=== PATIENT | male | born 1935 | race Caucasian/White ===

== ENCOUNTER 2021-02-15 09:03 | Observation (INO) ==
[2021-02-15] MEDS ORDERED: XYLOCAINE 1%/SOD BICARB 20 ML VIAL INFIL ONE (10:06)
[2021-02-15] MEDS ORDERED: DIPHTHERIA/TETANUS/PERTUSSIS 0.5 ML SYR/VIAL IM ONE (10:29)
[2021-02-15] MEDS ORDERED: SODIUM CHLORIDE 0.9% 1000ML 1,000 ML IV ONE (10:30)
--- NOTE | 2021-02-15 11:07 | CT Scan Report ---
HEAD CT NONCONTRAST CT DOSE: HISTORY: Pt c/o syncope, hit head TECHNIQUE: Multiaxial CT images of the head were performed without the use of intravenous contrast. A utomated exposure control was utilized for this study. A dose lowering technique was utilized adheri ng to the principles of ALARA. Comparison: None. Findings: The paranasal sinuses and mastoid air cells are clear. The calvarium and skull base are int act. There is no mass, hematoma, midline shift, acute infarct. White matter hypodensity is nonspecifi c but suggestive of microvascular ischemic change. The ventricles and sulci demonstrate mild age-rela christiano involutional changes. Mild left frontal scalp swelling with associated laceration. There is a 5 m m calcification within the right frontal lobe on image 17. This is of doubtful clinical significance and could represent a small calcified meningioma. Impression: No acute intracranial abnormality. Left frontal scalp laceration. ACT 112: Negative or not required by law. Electronically signed by: Rashad Chavez M.D. 02/15/2021 11:05 AM
[2021-02-15 11:09] LABS: Basophils # (auto) 0.01 K/uL (0-0.2); Basophils % (auto) 0.1 %; Eosinophils # (auto) 0.05 K/uL (0-0.5); Eosinophils % (auto) 0.4 %; Hematocrit (blood only) 39.4 % (42-52); Hemoglobin 13.7 g/dL (14.0-18.0); Immature Granulocytes # (auto) 0.02 K/uL (0.00-0.02); Immature Granulocytes % (auto) 0.2 %; Lymphocytes # (auto) 1.19 K/uL (1.2-3.4); Lymphocytes % (auto) 9.1 %; Mean Corpuscular Hemoglobin 31.6 pg (25-34); Mean Corpuscular Hgb Conc 34.8 g/dL (32-36); Mean Corpuscular Volume 90.8 fL (80-100); Mean Platelet Volume 10.4 fL (7.4-10.4); Monocytes # (auto) 1.07 K/uL (0.11-0.59); Monocytes % (auto) 8.2 %; Neutrophils # (auto) 10.76 K/uL (1.4-6.5); Platelet Count 196 K/uL (130-400); RDW Coefficient of Variation 12.2 % (11.5-14.5); Red Blood Count 4.34 M/uL (4.7-6.1)
--- NOTE | 2021-02-15 11:10 | CT Scan Report ---
CERVICAL SPINE CT CT DOSE: 925.55 mGy.cm HISTORY: Pt c/o fall, hit head TECHNIQUE: Multiaxial CT images of the cervical spine were performed and reformatted in the sagittal and coronal plane without the use of contrast. A dose lowering technique was utilized adhering to th e principles of ALARA. COMPARISON: None. FINDINGS: No fractures. No subluxation. Prevertebral soft tissues and the C1-C2 interval are intact. No pneumothorax. Severe disc space narrowing at C5-C6. IMPRESSION: No fractures within the cervical spine. ACT 112: Negative or not required by law. Electronically signed by: Rashad Chavez M.D. 02/15/2021 11:09 AM
--- NOTE | 2021-02-15 11:31 | XRay Report ---
XR chest 1V portable HISTORY: 85 years-old Male weakness acute chest trauma status post fall. Acute weakness COMPARISON: None TECHNIQUE: Portable AP view of the chest FINDINGS: Mild asymmetric left hilar prominence is likely secondary to pulmonary vasculature. Cardiac silhouett e is upper limits of normal in size. Mild interstitial coarsening of the lung bases likely on a chron ic basis. No pneumothorax, pleural effusion, airspace consolidation or overt pulmonary edema. Degener ative changes of the shoulders and spine. IMPRESSION: No acute process. ACT 112: Negative or not required by law. The above report was generated using voice recognition software. It may contain grammatical, syntax o r spelling errors. Electronically signed by: Benito Sebastian M.D. 02/15/2021 11:30 AM
[2021-02-15 11:35] LABS: Albumin Level 3.4 gm/dl (3.4-5.0); BUN Creatinine Ratio 17.5 (10-20); Calcium 8.9 mg/dl (8.5-10.1); Est GFR (African American) 90.4; Potassium 3.9 mmol/L (3.5-5.1)
[2021-02-15 11:46] LABS: Albumin Globulin Ratio 1.3 (0.9-2); Creatine Kinase MB 1.9 ng/ml (0.5-3.6); Globulin 2.7 gm/dl (2.5-4.0); Thyroid Stimulating Hormone 0.81 uIu/ml (0.300-4.500); Total Protein 6.1 gm/dl (6.4-8.2); Troponin I 0.034 ng/ml (0-0.045)
--- NOTE | 2021-02-15 13:01 | History & Physical Report ---
Date of Service February 15, 2021 Assessment & Plan (1) Fall: (2) Pre-syncope: 85 yr old M w/ hx of prostate ca s/p surgery with residual incontinence who presents to ED after sustaining a fall and possible pre syncope with significant L scalp laceration. Pt never experienced similar sx in past. Pt was going to bathroom, stood up to wash face/brush teeth and fell to L side, concern for pre syncope. Denies maria dolores loss of consciousness. In ED EKG with PAC but otherwise unremarkable. Trop detectable at 0.034, CKMB elevated 4.3. No other acute abnormality - will admit for further observation. Admit to med tele under observation obtain echocardiogram, carotid duplex orthostatic VS, received 1 L of IVF in ED, will administer more if orthostatic positive cycle trops, repeat ecg consult PT/OT cbc, bmp, mag, a1c, lipid panel in a.m. Leukocytosis no s/sx of infection may be reactive UA ordered, repeat in a.m. Hyperglycemia bsg 139 in ED obtain A1C in a.m. (3) Laceration of scalp: wound closed consult wound care for daily management tdap received in ED (4) Incontinence of urine: continue oxybutnin (5) DVT prophylaxis: SCD/TEDS no chemical prophylaxis for now 2/2 to fall/scalp laceration reassess need daily Dispo: M9 [employer] tele PCP: Jossy FULL CODE Pt was seen and examined in collaboration with Dr. Mack, please see addendum History of Present Illness Primary Care Provider: NO PCP This is a 85 year old male who has PMH as listed below who presents to ED after sustaining fall in bathroom prior to arrival hitting his head. He woke up to go to the bathroom and he decided to wash his face and brush his teeth, but he fell and hit his head on the left side. He had a lot of bleeding and was unable to get it to stop. Prior to falling he denies any pre syncopal symptoms like lightheaded, dizziness, diaphoresis, chest pain or SOB. He has never experienced syncopal episode in past. He hit his head and sustained a significant forehead laceration. He does have slight headache along the area of laceration but denies any visual changes. Prior to today episode he denies any f/c/s, dizziness, lightheaded, chest pain, sob, cough, uri sx, n/v/d, abdominal pain, change in bowel or urinary habits. He does have hx of prostate surgery for which he takes oxybutnin for incontinence. He also takes aspirin for prophylaxis of blood clot. He states he eats a low-fat and healthy diet which he attributes to good health. In ED patient remained hemodynamically stable. Lab work significant for mild leukocytosis, glucose 139, CK-MB 4.3, troponin detectable at 0.034. Head CT revealed left frontal scalp laceration and microvascular ischemic change but otherwise no acute abnormality. Chest x-ray and cervical spine CT without acute abnormality. He received 1 L of IV fluid as well as Tdap vaccination. History obtained with family member at bedside and assistance of scale model maker. Allergies Allergy/AdvReac Type Severity Reaction Status Date / Time No Known Allergies Allergy Unverified 02/15/21 10:08 Home Medications Medication Instructions Recorded Confirmed Type aspirin [Aspir-81] 81 mg PO DAILY 02/15/21 02/15/21 History oxybutynin chloride 5 mg PO BID 02/15/21 02/15/21 History Past Med/Surg History Medical History (Updated 02/15/21 @ 13:12 by Cindy Gonzáles PA-C) History of prostate cancer History of skin cancer Surgical History (Updated 02/15/21 @ 12:56 by Cindy Gonázles PA-C) History of prostate surgery Family History (Updated 02/15/21 @ 12:59 by Cindy Gonzáles PA-C) Denies family history of Heart disease Social History (Updated 02/15/21 @ 12:59 by Cindy Gonzáles PA-C) Smoking Status: Never smoker Hx Alcohol Use: No Hx Substance Use: No Preferred Language: Cambodian Communication Tools: IPad and Other Current Living Situation: Alone Current Living Situation Comment: never alone, 3 daughters assist him Feels Safe at Home: Yes Review of Systems Review of Systems: All systems reviewed & are unremarkable except as noted in HPI & below assisted with intepreter Physical Exam Physical Exam: Constitutional: Elderly, Cambodian, male, WD/WN, vitals as above, NAD, sitting up in bed, pleasant, conversing easily Head: Normocephalic, laceration to left temporal scalp region, wound sutured and closed with good approximation of edges Eyes: PERRL, conjunctivae normal, anicteric sclerae ENMT: external ear and nose normal, oropharynx normal Neck: trachea midline, no thyromegaly normal visual inspection Respiratory: normal respiratory effort, lungs clear to auscultation, no wheeze, rales, rhonchi. Normal insp/exp effort, no accessory muscle use Cardiovascular: RRR, no murmur, no edema Vessels: no JVD or carotid bruit Chest: normal inspection of chest Abdomen: normal bowel sounds, soft, nontender, no hepatosplenomegaly Musculoskeletal: no cyanosis or clubbing, extremities motor strength 5/5 Skin: no rashes, warm and dry normal turgor Neurologic: PERRL, EOMI, accommodation nl, no face palsy, no dysarthria CN's II-XI intact bilaterally and moves all extremities Psychiatric: A+Ox3, euthymic affect Lymphatic: no cervical or axillary lymphadenopathy : deferred Results & Data Results & Data ([facility]) Vital Signs (Past 12 Hours) Vital Signs Pulse Resp BP Pulse Ox 02/15/21 09:14 88 18 140/101 H [address]: Findings: The paranasal sinuses and mastoid air cells are clear. The calvarium and skull base are intact. There is no mass, hematoma, midline shift, acute infarct. White matter hypodensity is nonspecific but suggestive of microvascular ischemic change. The ventricles and sulci demonstrate mild age-related involutional changes. Mild left frontal scalp swelling with associated laceration. There is a 5 mm calcification within the right frontal lobe on image 17. This is of doubtful clinical significance and could represent a small calcified meningioma. Impression: No acute intracranial abnormality. Left frontal scalp laceration. CXR: IMPRESSION: No acute process. C Spine CT: FINDINGS: No fractures. No subluxation. Prevertebral soft tissues and the C1-C2 interval are intact. No pneumothorax. Severe disc space narrowing at C5-C6. ECG Rate (beats per minute): 68 Rhythm: normal sinus Findings: + PAC COVID-19 Results Results COVID-19 Adm Lab Results: RBC 4.34 M/uL (4.7-6.1) L 02/15/21 WBC 13.10 K/uL (4.8-10.8) H 02/15/21 Hgb 13.7 g/dL (14.0-18.0) L 02/15/21 Hct 39.4 % (42-52) L 02/15/21 Plt Count 196 K/uL (130-400) 02/15/21 Neutrophils (%) (Auto) 82.0 % 02/15/21 Lymphocytes (%) (Auto) 9.1 % 02/15/21 Monocytes # (Auto) 1.07 K/uL (0.11-0.59) H 02/15/21 Eosinophils # (Auto) 0.05 K/uL (0-0.5) 02/15/21 Immature Granulocyte % (Auto) 0.2 % 02/15/21 Neutrophils # (Auto) 10.76 K/uL (1.4-6.5) H 02/15/21 Lymphocytes # (Auto) 1.19 K/uL (1.2-3.4) L 02/15/21 Monocytes # (Auto) 1.07 K/uL (0.11-0.59) H 02/15/21 Eosinophils # (Auto) 0.05 K/uL (0-0.5) 02/15/21 Basophils # (Auto) 0.01 K/uL (0-0.2) 02/15/21 Immature Granulocyte # (Auto) 0.02 K/uL (0.00-0.02) 02/15/21 Na 138 mmol/L (136-145) 02/15/21 K 3.9 mmol/L (3.5-5.1) 02/15/21 Cl 108 mmol/L (98-107) H 02/15/21 CO2 26 mmol/L (21-32) 02/15/21 Anion Gap 4.0 (3-11) 02/15/21 BUN 16 mg/dl (7-18) 02/15/21 Creatinine 0.89 mg/dl (0.6-1.4) 02/15/21 BUN/Creatinine Ratio 17.5 (10-20) 02/15/21 Glucose Level 139 mg/dl (70-99) H 02/15/21 Ca 8.9 mg/dl (8.5-10.1) 02/15/21 Total Bilirubin 1.0 mg/dl (0.2-1) 02/15/21 AST/SGOT 15 U/L (15-37) 02/15/21 ALT/SGPT 19 U/L (12-78) 02/15/21 Alkaline Phosphatase 70 U/L (45-117) 02/15/21 Total Protein 6.1 gm/dl (6.4-8.2) L 02/15/21 Albumin 3.4 gm/dl (3.4-5.0) 02/15/21 Globulin 2.7 gm/dl (2.5-4.0) 02/15/21 Albumin/Globulin Ratio 1.3 (0.9-2) 02/15/21 Total CK 44 U/L (39-308) 02/15/21 Troponin I 0.034 ng/ml (0-0.045) 02/15/21 COVID-19 PCR NEGATIVE (Negative) 02/15/21 Influenza Virus Type A (PCR) Negative (Neg) 02/15/21 Influenza Virus Type B (PCR) Negative (Neg) 02/15/21 Chest X-Ray 02/15/21 Code Status & VTE Plan Code Status Full Code VTE Prophylaxis Plan VTE Prophylaxis will be ordered: Yes Reason for no VTE drug order: Contraindicated Supervising Physician Co-Signing Physician Notes And is an 84-year-old male with history of prostate cancer S/P surgery many years ago, urinary incontinence but otherwise no significant past medical history presents with history of fall sustaining head laceration this morning. Patient fell this morning after visiting bathroom and fell on his left side hitting his head which resulted in bleeding from scalp laceration. He denied any history of dizziness, change in vision, loss of consciousness, nausea, chest pain, shortness of breath. He denied similar episodes in the past as well. No recent change in his medications. Please review HPI for complete details of presentation. Patient takes aspirin but denies any use of any other blood thinners. CT head showed no acute intracranial abnormality. CT neck showed no cervical fractures. On exam patient is thin, elderly, no apparent distress, normocephalic, + left scalp laceration and sutures, EOMI, lungs are clear to auscultation, normal breath sounds, S1-S2, no murmur, abdomen soft nontender, normal bowel sounds, alert, awake, oriented, grossly no focal neural deficits, no pedal edema. Patient is admitted for management of presyncope, fall, scalp laceration. Will obtain carotid ultrasound, echocardiogram, check orthostatics, trend cardiac enzymes and repeat EKG in the morning. Request PT OT evaluation. Mild leukocytosis likely reactive. I personally reviewed the record. Patient is interviewed and examined at bedside. Patient's care is coordinated with Cindy Gonzáles PA-C. Please refer to the documentation above for details of patient's presentation and for discussion of other issues.
[2021-02-15 13:17] LABS: Influenza A virus by PCR Negative (Neg); Influenza B virus by PCR Negative (Neg); RSV by PCR Negative (Neg); SARS CoV2 RNA(COVID-19) InHosp NEGATIVE (Negative)
--- NOTE | 2021-02-15 14:32 | Ultrasound Report ---
BILATERAL CAROTID DOPPLER STUDY HISTORY: syncope COMPARISON: None. TECHNIQUE: Real-time, grayscale, and color Doppler sonography of the carotid arteries was performed. Imaging reviewed in the transverse and longitudinal planes. All measurements were calculated based on NASCET criteria. FINDINGS: Antegrade flow is seen in the bilateral vertebral arteries. The brachial pressures are hemodynamically similar. Mild calcified plaque within the bilateral carotid bifurcations. The peak systolic velocity within the right ICA is 74 cm/s. The right systolic ratio is 1.3. The peak systolic velocity within the left ICA is 65 cm/s. The left systolic ratio is 1.0. IMPRESSION: No hemodynamically significant stenosis seen within the carotid arteries. ACT 112: Negative or not required by law. Electronically signed by: Rashad Chavez M.D. 02/15/2021 2:30 PM
[2021-02-15] MEDS ORDERED: MAGNESIUM HYDROXIDE SUSP 30 ML UDC PO PRN (14:38)
[2021-02-15] MEDS ORDERED: ACETAMINOPHEN 325 MG TAB PO PRN (14:38)
[2021-02-15] MEDS ORDERED: ONDANSETRON INJ 2 MG/ML 2 ML VIAL IV PRN (14:38)
[2021-02-15] MEDS ORDERED: ALUMINUM/MAGNESIUM SUSP 30 ML UDC PO PRN (14:38)
[2021-02-15] MEDS ORDERED: POLYETHYLENE (MIRALAX) 17 GM PACK PO PRN (14:38)
--- NOTE | 2021-02-15 15:07 | Emergency Department Note ---
Impression & Plan Fall, Laceration of scalp ED Provider Note NAME: SRAVAN BERRY AGE: 85 SEX: M : 1935 ARRIVES VIA: Ambulance INFORMANT: Patient, daughter, wellness director ED PROVIDER(S): Abdulaziz Edmonds MD CHIEF COMPLAINT: Syncope, laceration HPI: This is an 85-year-old male who presents emergency department after passing out. The patient reports he urinated this morning and was brushing his teeth when he passed out without any warning. His daughter found him on the floor of the bathroom. He had a large laceration to his scalp which was bleeding profusely. EMS was summoned who. He reports never having passed out like this before. Put a bandage on the patient's head. The patient denies any pain. He has not taken anything prior to arrival including his morning medications. ROS: See above HPI for pertinent positives & negatives. A total of 10 systems reviewed and were otherwise negative. PAST MEDICAL HISTORY: See Below PAST SURGICAL HISTORY: See Below FAMILY HISTORY: See Below SOCIAL HISTORY: See Below HOME MEDICATIONS: See Below ALLERGIES: See Below VITALS: See Below PHYSICAL EXAMINATION: VITAL SIGNS - Vital signs and nursing notes were reviewed. GENERAL - 85-year-old male appearing stated age who is in no acute distress. Communicates well with provider and answers questions appropriately. SKIN - 4 cm laceration to left side of forehead HEAD - as above EYES - PERRL with EOMI bilaterally. Sclera anicteric. Palpebral conjunctiva pink and moist with no injection noted. EARS - No deformities of external structures noted on gross examination bilaterally. NOSE - Midline and without cyanosis. No epistaxis or purulent drainage noted. Septum midline without deviation or septal hematoma noted. MOUTH/OROPHARYNX - Without perioral cyanosis. Buccal mucosa pink and moist and without leukoplakia. Tongue midline with equal elevation of palate bilaterally. No tonsillar hypertrophy, erythema, or exudates noted. dentition noted. NECK - Neck with FROM. Supple to palpation. lymphadenopathy noted. No nuchal rigidity. LUNGS - Chest wall symmetric without accessory muscle use, intercostals retractions, or central cyanosis. Normal vesicular breath sounds CTA B/L. No wheezes, rales, or rhonchi appreciated. CARDIAC - RRR with S1/S2. No murmur, rubs, or gallops appreciated. ABDOMEN - Abdominal contour without pulsations or visible masses. BS normoactive all four quadrants. No tenderness, palpable masses, hepatosplenomegaly, or ascites noted. EXTREMITIES - No clubbing or peripheral cyanosis. No pretibial edema present. +3/5 radial, posterior tibial, and dorsalis pedis pulses palpated throughout. +5/5 strength noted in UE/LE bilaterally. NEUROLOGIC - Cranial nerves II through XII grossly intact. Sensory intact to light touch throughout. Patellar reflexes +2/4. PSYCH - A&Ox3 and cooperates fully with examiner. Pt is very pleasant and interacts well with examiner. MEDICAL DECISION MAKING: Patient was seen and evaluated as above in room . Review was performed of nursing notes and vital signs. I did review pertinent previous visits and patient history. After obtaining a thorough history and physical examination the above work up was performed. This is an 85-year-old male requesting excel expert services. The patient was given a tetanus shot here in the emergency department. His laceration was repaired as below. I will note that the patient has a slightly elevated troponin. With his syncopal episode I do feel he should be admitted to the hospital he was given a normal saline bolus here in the emergency department. Both patient and daughter are in agreement with the treatment plan. While in the department, I personally reevaluated the patient several times and each time the patient was found to be resting comfortably. The patient was educated upon management, educated upon todays findings/results, educated upon importance of follow up from today's visit, educated upon symptoms in which to return, had questions answered prior to discharge, verbalized understanding, and was discharged home in good condition. An order was placed for continuous cardiac monitoring. The monitor shows a rate of 86 with Normal SInus rhythm. The patient was evaluated during a period of high volume and high acuity during the global COVID-19 pandemic, and that diagnosis was suspected/considered upon their initial presentation. Their evaluation, treatment and testing was consistent with current guidelines for patients who present with complaints or symptoms that may be related to COVID-19. Patient was seen while provider was wearing PPE. Triage Nursing notes reviewed. Prior medical records reviewed Vital Signs: reviewed and remarkable for no significant abnormalities Differential diagnosis: Infection, dehydration, metabolic abnormality, hypo/hyperglycemia, electrolyte disturbance, anemia, hypoxia, cardiac sources, intracerebral event, toxicologic, neurologic, as well as other pathologies. ER treatment provided: See below Diagnostics interpreted by me: ECG: EKG shows a sinus rhythm with premature supraventricular complexes no ST elevation or depression QTC is 442 ventricular rate of 68, there is no previous EKG to compare to. Laboratory studies: As stated above and show below. Imaging studies: See below Consultation(s): hospitalist Procedures: Location: left forehead Total length: 4 cm Complexity: simple linear Verbal consent was obtained after the risks and benefits were explained, including but not limited to bleeding, scarring, infection, pain, and bone/joint/nerve damage. At this time, the risks of the procedure are less than the risks of NOT performing the procedure. A time out was taken and the correct patient and site identified. The skin was prepped with betadine. The target area was anesthetized with 4 ml of 1% lidocaine without epinephrine. Copious irrigation was performed using NSS. A sterile field set. The wound was explored for foreign bodies and none found. Examination revealed no injury to deep structures such as tendons, bone, or significant blood vessels. Debridement was not performed. The wound edges were approximated using 1, 5-0 simple running nylon suture. Hemostasis and excellent approximation was achieved. Antibacterial ointment and a sterile dressing applied. Detailed wound care instructions and signs and symptoms of infection reviewed with the patient and daughter. No complications and the patient tolerated the procedure well. Past Med/Surg History Medical History (Updated 02/15/21 @ 17:51 by Abdulaziz Edmonds MD) History of prostate cancer History of skin cancer Surgical History (Updated 02/15/21 @ 12:56 by Cindy Gonzáles PA-C) History of prostate surgery Family History (Updated 02/15/21 @ 12:59 by Cindy Gonzáles PA-C) Denies family history of Heart disease Social History (Updated 02/15/21 @ 12:59 by Cindy Gonzáles PA-C) Smoking Status: Never smoker Hx Alcohol Use: No Hx Substance Use: No Preferred Language: Irish Communication Ability: Effective Communication Tools: IPad and Other Log Hauler Required: Yes Beliefs That Will Affect Care: None Current Living Situation: Alone Current Living Situation Comment: never alone, 3 daughters assist him Other Information That Helps Us Care for You: No Feels Safe at Home: Yes Safety Concerns: Feels Safe At This Time Assistive Devices: None Allergies Allergies Allergy/AdvReac Type Severity Reaction Status Date / Time No Known Allergies Allergy Unverified 02/15/21 10:08 Home Meds Home Medications Medication Instructions Recorded Confirmed aspirin [Aspir-81] 81 mg PO DAILY 02/15/21 02/15/21 oxybutynin chloride 5 mg PO BID 02/15/21 02/15/21 Results & Data (ED) Vital Signs Vital Signs - 24 hr 02/15/21 09:14 Pulse Rate 88 Respiratory Rate 18 Blood Pressure 140/101 H Blood Pressure Mean 114 Pulse Oximetry 94 Sepsis Recent Fever Within 48 Hours No Sepsis New/Unexplained Change in Mental Status No Sepsis Action Taken by Nursing No Action Required Home Medications Current Medication List: was personally reviewed by me Laboratory Data Attestation: I reviewed the patient's lab results. Result diagrams: 02/15/21 10:51 02/15/21 10:51 Lab Results 02/15/21 02/15/21 02/15/21 Range/Units 10:51 10:51 12:31 WBC 13.10 H (4.8-10.8) K/uL RBC 4.34 L (4.7-6.1) M/uL Hgb 13.7 L (14.0-18.0) g/dL Hct 39.4 L (42-52) % MCV 90.8 (80-100) fL MCH 31.6 (25-34) pg MCHC 34.8 (32-36) g/dL RDW Std Deviation 41.0 (36.4-46.3) fL RDW Coeff of Juan 12.2 (11.5-14.5) % Plt Count 196 (130-400) K/uL MPV 10.4 (7.4-10.4) fL Immature Gran % (Auto) 0.2 % Neut % (Auto) 82.0 % Lymph % (Auto) 9.1 % [place] % (Auto) 8.2 % Eos % (Auto) 0.4 % Baso % (Auto) 0.1 % Neut # (Auto) 10.76 H (1.4-6.5) K/uL Lymph # (Auto) 1.19 L (1.2-3.4) K/uL [place] # (Auto) 1.07 H (0.11-0.59) K/uL Eos # (Auto) 0.05 (0-0.5) K/uL Baso # (Auto) 0.01 (0-0.2) K/uL Immature Gran # (Auto) 0.02 (0.00-0.02) K/uL Sodium 138 (136-145) mmol/L Potassium 3.9 (3.5-5.1) mmol/L Chloride 108 H (98-107) mmol/L Carbon Dioxide 26 (21-32) mmol/L Anion Gap 4.0 (3-11) BUN 16 (7-18) mg/dl Creatinine 0.89 (0.6-1.4) mg/dl Est Cr Clr Drug Dosing 50.0 ml/min Est GFR ( Amer) 90.4 Est GFR (Non-Af Amer) 78.0 BUN/Creatinine Ratio 17.5 (10-20) Glucose 139 H (70-99) mg/dl Calcium 8.9 (8.5-10.1) mg/dl Total Bilirubin 1.0 (0.2-1) mg/dl AST 15 (15-37) U/L ALT 19 (12-78) U/L Alkaline Phosphatase 70 (45-117) U/L Total Creatine Kinase 44 (39-308) U/L CK-MB (CK-2) 1.9 (0.5-3.6) ng/ml CK/CKMB % Calc 4.3 H (0-3.0) Troponin I 0.034 (0-0.045) ng/ml Total Protein 6.1 L (6.4-8.2) gm/dl Albumin 3.4 (3.4-5.0) gm/dl Globulin 2.7 (2.5-4.0) gm/dl Albumin/Globulin Ratio 1.3 (0.9-2) TSH 0.810 (0.300-4.500) uIu/ml COVID-19 Eval Order CovFluRsv at [facility] SARS-CoV-2 (PCR) (Negative) Influenza Type A (PCR) (Neg) Influenza Type B (PCR) (Neg) RSV (RT-PCR) (Neg) 02/15/21 Range/Units 12:31 WBC (4.8-10.8) K/uL RBC (4.7-6.1) M/uL Hgb (14.0-18.0) g/dL Hct (42-52) % MCV (80-100) fL MCH (25-34) pg MCHC (32-36) g/dL RDW Std Deviation (36.4-46.3) fL RDW Coeff of Juan (11.5-14.5) % Plt Count (130-400) K/uL MPV (7.4-10.4) fL Immature Gran % (Auto) % Neut % (Auto) % Lymph % (Auto) % [place] % (Auto) % Eos % (Auto) % Baso % (Auto) % Neut # (Auto) (1.4-6.5) K/uL Lymph # (Auto) (1.2-3.4) K/uL [place] # (Auto) (0.11-0.59) K/uL Eos # (Auto) (0-0.5) K/uL Baso # (Auto) (0-0.2) K/uL Immature Gran # (Auto) (0.00-0.02) K/uL Sodium (136-145) mmol/L Potassium (3.5-5.1) mmol/L Chloride (98-107) mmol/L Carbon Dioxide (21-32) mmol/L Anion Gap (3-11) BUN (7-18) mg/dl Creatinine (0.6-1.4) mg/dl Est Cr Clr Drug Dosing ml/min Est GFR ( Amer) Est GFR (Non-Af Amer) BUN/Creatinine Ratio (10-20) Glucose (70-99) mg/dl Calcium (8.5-10.1) mg/dl Total Bilirubin (0.2-1) mg/dl AST (15-37) U/L ALT (12-78) U/L Alkaline Phosphatase (45-117) U/L Total Creatine Kinase (39-308) U/L CK-MB (CK-2) (0.5-3.6) ng/ml CK/CKMB % Calc (0-3.0) Troponin I (0-0.045) ng/ml Total Protein (6.4-8.2) gm/dl Albumin (3.4-5.0) gm/dl Globulin (2.5-4.0) gm/dl Albumin/Globulin Ratio (0.9-2) TSH (0.300-4.500) uIu/ml COVID-19 Eval Order SARS-CoV-2 (PCR) NEGATIVE (Negative) Influenza Type A (PCR) Negative (Neg) Influenza Type B (PCR) Negative (Neg) RSV (RT-PCR) Negative (Neg) Administered Medications Discontinued Medications Diphtheria/Pertussis/Tetanus Vacc (Diphtheria/Tetanus/Pertussis 0.5 Ml Syr/Vial) 0.5 ml IM .ONCE ONE Stop: 02/15/21 10:30 Last Admin: 02/15/21 11:21 Dose: 0.5 ml Documented by: [id number] Sodium Chloride (Nss 1000ml) 1,000 mls @ 999 mls/hr IV .Q1H1M ONE Stop: 02/15/21 11:30 Last Infusion: 02/15/21 12:21 Dose: 0 mls/hr Documented by: [id number] Admin: 02/15/21 11:20 Dose: 999 mls/hr Documented by: [id number] Lidocaine HCl (Xylocaine 1%/Sod Bicarb 20 Ml Vial) Confirm Administered Dose 20 ml INFIL .STK-MED ONE Stop: 02/15/21 10:07 Last Admin: 02/15/21 10:15 Dose: 20 ml Documented by: [id number] Imaging Data Attestation: I personally reviewed and interpreted this imaging study as follows: Radiologist's Impression: Cervical Spine CT 02/15/21 10:[address] DOSE: 925.55 mGy.cm HISTORY: Pt c/o fall, hit head TECHNIQUE: Multiaxial CT images of the cervical spine were performed and refor matted in the sagittal and coronal plane without the use of contrast. A dose lowering technique was utilized adhering to the principles of ALARA. COMPARISON: None. FINDINGS: No fractures. No subluxation. Prevertebral soft tissues and the C1-C2 interval are intact. No pneumothorax. Severe disc space narrowing at C5-C6. IMPRESSION: No fractures within the cervical spine. ACT 112: Negative or not required by law. Electronically signed by: Rashad Chavez M.D. 02/15/2021 11:09 AM Chest X-Ray 02/15/21 10:29 XR chest 1V portable HISTORY: 85 years-old Male weakness acute chest trauma status post fall. Acute weakness COMPARISON: None TECHNIQUE: Portable AP view of the chest FINDINGS: Mild asymmetric left hilar prominence is likely secondary to pulmonary vasculature. Cardiac silhouette is upper limits of normal in size. Mild interstitial coarsening of the lung bases likely on a chronic basis. No pneumothorax, pleural effusion, airspace consolidation or overt pulmonary edema. Degenerative changes of the shoulders and spine. IMPRESSION: No acute process. ACT 112: Negative or not required by law. The above report was generated using voice recognition software. It may contain grammatical, syntax or spelling errors. Electronically signed by: Benito Sebastian M.D. 02/15/2021 11:[address] 02/15/21 10:[address] DOSE: HISTORY: Pt c/o syncope, hit head TECHNIQUE: Multiaxial CT images of the head were performed without the use of intravenous contrast. Automated exposure control was utilized for this study. A dose lowering technique was utilized adhering to the principles of ALARA. Comparison: None. Findings: The paranasal sinuses and mastoid air cells are clear. The calvarium and skull base are intact. There is no mass, hematoma, midline shift, acute infa rct. White matter hypodensity is nonspecific but suggestive of microvascular ischemic change. The ventricles and sulci demonstrate mild age-related involutional changes. Mild left frontal scalp swelling with associated laceration. There is a 5 mm calcification within the right frontal lobe on image 17. This is of doubtful clinical significance and could represent a small calcified meningioma. Impression: No acute intracranial abnormality. Left frontal scalp laceration. ACT 112: Negative or not required by law. Electronically signed by: Rashad Chavez M.D. 02/15/2021 11:05 AM Discharge Plan Visit Data Stated Complaint: HEAD LAC, FALL ED Provider: Abdulaziz Edmonds Discharge Problem: Fall, Laceration of scalp Patient Disposition: Admitted As Inpatient Discharge Instructions Interventions: ED Discharge Assessment Last Done: 02/15/21 14:10 Discharge Problem: Fall Qualifiers: Encounter type: initial encounter Qualified Code(s): W19.XXXA - Unspecified fall, initial encounter Laceration of scalp Qualifiers: Encounter type: initial encounter Qualified Code(s): S01.01XA - Laceration without foreign body of scalp, initial encounter
--- NOTE | 2021-02-15 17:08 | Electrocardiogram Report ---
Test Reason : Blood Pressure : / mmHG Vent. Rate : 068 BPM Atrial Rate : 068 BPM P-R Int : 154 ms QRS Dur : 076 ms QT Int : 416 ms P-R-T Axes : 052 021 038 degrees QTc Int : 442 ms Poor data quality, interpretation may be adversely affected Sinus rhythm with Premature supraventricular complexes Otherwise normal ECG No previous ECGs available Confirmed by Dago Corbett ([id number]) on 02/15/2021 5:07:39 PM Referred By: REFERRED SELF Confirmed By:Gal Corbett
[2021-02-15] MEDS: OXYBUTYNIN CHLORIDE 5 MG TAB PO SCH (20:24)
[2021-02-16 07:33] LABS: Basophils # (auto) 0.01 K/uL (0-0.2); Basophils % (auto) 0.1 %; Eosinophils # (auto) 0.04 K/uL (0-0.5); Eosinophils % (auto) 0.6 %; Hematocrit (blood only) 32.5 % (42-52); Hemoglobin 11.6 g/dL (14.0-18.0); Immature Granulocytes # (auto) 0.01 K/uL (0.00-0.02); Immature Granulocytes % (auto) 0.1 %; Lymphocytes % (auto) 29.6 %; Mean Corpuscular Hemoglobin 32.1 pg (25-34); Mean Corpuscular Hgb Conc 35.7 g/dL (32-36); Mean Platelet Volume 10.8 fL (7.4-10.4); Monocytes # (auto) 0.83 K/uL (0.11-0.59); Monocytes % (auto) 12.3 %; Neutrophils # (auto) 3.87 K/uL (1.4-6.5); Neutrophils % (auto) 57.3 %; Platelet Count 180 K/uL (130-400); RDW Coefficient of Variation 12.4 % (11.5-14.5); Red Blood Count 3.61 M/uL (4.7-6.1); White Blood Count 6.76 K/uL (4.8-10.8)
[2021-02-16 07:53] LABS: Estimated Average Glucose 117 mg/dl; Hemoglobin A1C 5.7 % (4.5-5.6)
[2021-02-16 08:03] LABS: BUN Creatinine Ratio 23.8 (10-20); Calcium 7.7 mg/dl (8.5-10.1); Creatinine Clr Calc Pharmacy 53.1 ml/min; Est GFR (African American) 94.4; Est GFR (Non-African American) 81.5; Magnesium 2.1 mg/dl (1.8-2.4); Potassium 3.9 mmol/L (3.5-5.1)
[2021-02-16] MEDS: ASPIRIN 81 MG ECTAB PO SCH ×2 (09:43→09:45)
[2021-02-16] MEDS: OXYBUTYNIN CHLORIDE 5 MG TAB PO SCH (09:43)
--- NOTE | 2021-02-16 10:52 | Hospitalist Progress Note ---
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 Pt never experienced similar sx in past. Pt was going to bathroom, stood up to wash face/brush teeth and fell to L side, concern for pre syncope. Denies maria dolores loss of consciousness. In ED EKG with PAC but otherwise unremarkable. Trop detectable at 0.034, CKMB elevated 4.3. No other acute abnormality - admitted for further observation. med tele under observation - sinus w/ PACs overnight Echocardiogram -left ventricle is normal in size. LV systolic function is normal. EF 65 to 70%. LV wall motion is normal. The right ventricular systolic function is normal. LA size is normal. RA size is normal. Mild to moderate aortic regurg. There is mild tricuspid regurg. Carotid duplex - No hemodynamically significant stenosis seen within the carotid arteries. Orthostatic VS obtained after 1L of IV fluids given, patient not orthostatic cycle trops- detectable but no sign. elevation, repeated ecg consult PT/OT - home PT cbc, bmp Leukocytosis no s/sx of infection may be reactive Now resolved UA - negative Hyperglycemia bsg 139 in ED Current A1C 5.7% LDL 67 (3) Laceration of scalp: wound closed consult wound care for daily management - recommend to keep the area clean can was w/ soap and water 24-48 hrs after, poss. abx ointment as needed tdap received in ED (4) Incontinence of urine: continue oxybutnin (5) DVT prophylaxis: SCD/TEDS no chemical prophylaxis for now 2/2 to fall/scalp laceration reassess need daily Dispo: med tele PCP: Dr. Fenton FULL CODE Admission and Anticipated Discharge Date Admission Date: February 15, 2021 Subjective Patient seen in follow-up of fall, possible presyncope, and a scalp laceration Currently patient is sitting up in bed, in no acute distress, family member at the bedside and translating They report that patient stumbled when he was putting on his clothing and report that there was no dizziness or loss of consciousness Currently patient denies any headache, chest pain, shortness of breath, dizziness Overall he feels well, and is inquiring about going home. Review of Systems Review of Systems: All systems reviewed & are unremarkable except as noted in HPI & below Constitutional: no fever and no chills Respiratory: no cough and no dyspnea Cardiovascular: no chest pain and no palpitations Gastrointestinal: no abdominal pain, no nausea and no vomiting Physical Exam Physical Exam: Constitutional: Elderly, Bahamian, male, WD/WN, vitals as above, NAD, sitting up in bed, pleasant, conversing easily Head: Normocephalic, laceration to left temporal scalp region, wound sutured and closed with good approximation of edges Eyes: PERRL, EOMI, conjunctivae normal, anicteric sclerae ENMT: external ear and nose normal, oropharynx normal Neck: trachea midline, no thyromegaly normal visual inspection Respiratory: normal respiratory effort, lungs clear to auscultation, no wheeze, rales, rhonchi. Normal insp/exp effort, no accessory muscle use Cardiovascular: RRR, no murmur, no edema Vessels: no JVD or carotid bruit Chest: normal inspection of chest Abdomen: normal bowel sounds, soft, nontender Musculoskeletal: no cyanosis or clubbing, extremities motor strength 5/5 Skin: no rashes, warm and dry normal turgor Neurologic: PERRL, EOMI, no face palsy, no dysarthria CN's II-XI intact bilaterally and moves all extremities Psychiatric: A+Ox3, euthymic affect Lymphatic: no cervical or axillary lymphadenopathy Results & Data Results & Data ([facility]) Vital Signs (Past 12 Hours) Vital Signs Temp Pulse Pulse Resp BP Pulse Ox 02/16/21 07:37 36.9 C 60 19 113/68 95 02/16/21 07:00 62 02/16/21 03:03 72 02/16/21 02:47 36.6 C 63 18 96/42 L 96 02/15/21 23:14 37.3 C 77 19 109/61 93 Laboratory Results 02/16/21 02/16/21 02/16/21 Range/Units 06:50 06:50 06:50 WBC 6.76 (4.8-10.8) K/uL RBC 3.61 L (4.7-6.1) M/uL Hgb 11.6 L (14.0-18.0) g/dL Hct 32.5 L (42-52) % MCV 90.0 (80-100) fL MCH 32.1 (25-34) pg MCHC 35.7 (32-36) g/dL RDW Std Deviation 41.0 (36.4-46.3) fL RDW Coeff of Juan 12.4 (11.5-14.5) % Plt Count 180 (130-400) K/uL MPV 10.8 H (7.4-10.4) fL Immature Gran % (Auto) 0.1 % Neut % (Auto) 57.3 % Lymph % (Auto) 29.6 % [place] % (Auto) 12.3 % Eos % (Auto) 0.6 % Baso % (Auto) 0.1 % Neut # (Auto) 3.87 (1.4-6.5) K/uL Lymph # (Auto) 2.00 (1.2-3.4) K/uL [place] # (Auto) 0.83 H (0.11-0.59) K/uL Eos # (Auto) 0.04 (0-0.5) K/uL Baso # (Auto) 0.01 (0-0.2) K/uL Immature Gran # (Auto) 0.01 (0.00-0.02) K/uL Sodium 141 (136-145) mmol/L Potassium 3.9 (3.5-5.1) mmol/L Chloride 111 H (98-107) mmol/L Carbon Dioxide 27 (21-32) mmol/L Anion Gap 3.0 (3-11) BUN 19 H (7-18) mg/dl Creatinine 0.80 (0.6-1.4) mg/dl Est Cr Clr Drug Dosing 53.1 ml/min Est GFR ( Amer) 94.4 Est GFR (Non-Af Amer) 81.5 BUN/Creatinine Ratio 23.8 H (10-20) Glucose 91 (70-99) mg/dl Estimat Average Glucose 117 mg/dl Hemoglobin A1c 5.7 H (4.5-5.6) % Calcium 7.7 L (8.5-10.1) mg/dl Magnesium 2.1 (1.8-2.4) mg/dl Total Bilirubin (0.2-1) mg/dl AST (15-37) U/L ALT (12-78) U/L Alkaline Phosphatase (45-117) U/L Total Creatine Kinase (39-308) U/L CK-MB (CK-2) (0.5-3.6) ng/ml CK/CKMB % Calc (0-3.0) Troponin I (0-0.045) ng/ml Total Protein (6.4-8.2) gm/dl Albumin (3.4-5.0) gm/dl Globulin (2.5-4.0) gm/dl Albumin/Globulin Ratio (0.9-2) Triglycerides 72 (0-150) mg/dl Cholesterol 119 (0-200) mg/dl LDL Cholesterol, Calc 67 mg/dl VLDL Cholesterol, Calc 14 mg/dl HDL Cholesterol 38 mg/dl Cholesterol/HDL Ratio 3 TSH (0.300-4.500) uIu/ml COVID-19 Eval Order SARS-CoV-2 (PCR) (Negative) Influenza Type A (PCR) (Neg) Influenza Type B (PCR) (Neg) RSV (RT-PCR) (Neg) 02/15/21 02/15/21 02/15/21 Range/Units 22:27 16:13 12:31 WBC (4.8-10.8) K/uL RBC (4.7-6.1) M/uL Hgb (14.0-18.0) g/dL Hct (42-52) % MCV (80-100) fL MCH (25-34) pg MCHC (32-36) g/dL RDW Std Deviation (36.4-46.3) fL RDW Coeff of Juan (11.5-14.5) % Plt Count (130-400) K/uL MPV (7.4-10.4) fL Immature Gran % (Auto) % Neut % (Auto) % Lymph % (Auto) % [place] % (Auto) % Eos % (Auto) % Baso % (Auto) % Neut # (Auto) (1.4-6.5) K/uL Lymph # (Auto) (1.2-3.4) K/uL [place] # (Auto) (0.11-0.59) K/uL Eos # (Auto) (0-0.5) K/uL Baso # (Auto) (0-0.2) K/uL Immature Gran # (Auto) (0.00-0.02) K/uL Sodium (136-145) mmol/L Potassium (3.5-5.1) mmol/L Chloride (98-107) mmol/L Carbon Dioxide (21-32) mmol/L Anion Gap (3-11) BUN (7-18) mg/dl Creatinine (0.6-1.4) mg/dl Est Cr Clr Drug Dosing ml/min Est GFR ( Amer) Est GFR (Non-Af Amer) BUN/Creatinine Ratio (10-20) Glucose (70-99) mg/dl Estimat Average Glucose mg/dl Hemoglobin A1c (4.5-5.6) % Calcium (8.5-10.1) mg/dl Magnesium (1.8-2.4) mg/dl Total Bilirubin (0.2-1) mg/dl AST (15-37) U/L ALT (12-78) U/L Alkaline Phosphatase (45-117) U/L Total Creatine Kinase (39-308) U/L CK-MB (CK-2) (0.5-3.6) ng/ml CK/CKMB % Calc (0-3.0) Troponin I 0.025 0.036 (0-0.045) ng/ml Total Protein (6.4-8.2) gm/dl Albumin (3.4-5.0) gm/dl Globulin (2.5-4.0) gm/dl Albumin/Globulin Ratio (0.9-2) Triglycerides (0-150) mg/dl Cholesterol (0-200) mg/dl LDL Cholesterol, Calc mg/dl VLDL Cholesterol, Calc mg/dl HDL Cholesterol mg/dl Cholesterol/HDL Ratio TSH (0.300-4.500) uIu/ml COVID-19 Eval Order SARS-CoV-2 (PCR) NEGATIVE (Negative) Influenza Type A (PCR) Negative (Neg) Influenza Type B (PCR) Negative (Neg) RSV (RT-PCR) Negative (Neg) 02/15/21 02/15/21 02/15/21 Range/Units 12:31 10:51 10:51 WBC 13.10 H (4.8-10.8) K/uL RBC 4.34 L (4.7-6.1) M/uL Hgb 13.7 L (14.0-18.0) g/dL Hct 39.4 L (42-52) % MCV 90.8 (80-100) fL MCH 31.6 (25-34) pg MCHC 34.8 (32-36) g/dL RDW Std Deviation 41.0 (36.4-46.3) fL RDW Coeff of Juan 12.2 (11.5-14.5) % Plt Count 196 (130-400) K/uL MPV 10.4 (7.4-10.4) fL Immature Gran % (Auto) 0.2 % Neut % (Auto) 82.0 % Lymph % (Auto) 9.1 % [place] % (Auto) 8.2 % Eos % (Auto) 0.4 % Baso % (Auto) 0.1 % Neut # (Auto) 10.76 H (1.4-6.5) K/uL Lymph # (Auto) 1.19 L (1.2-3.4) K/uL [place] # (Auto) 1.07 H (0.11-0.59) K/uL Eos # (Auto) 0.05 (0-0.5) K/uL Baso # (Auto) 0.01 (0-0.2) K/uL Immature Gran # (Auto) 0.02 (0.00-0.02) K/uL Sodium 138 (136-145) mmol/L Potassium 3.9 (3.5-5.1) mmol/L Chloride 108 H (98-107) mmol/L Carbon Dioxide 26 (21-32) mmol/L Anion Gap 4.0 (3-11) BUN 16 (7-18) mg/dl Creatinine 0.89 (0.6-1.4) mg/dl Est Cr Clr Drug Dosing 50.0 ml/min Est GFR ( Amer) 90.4 Est GFR (Non-Af Amer) 78.0 BUN/Creatinine Ratio 17.5 (10-20) Glucose 139 H (70-99) mg/dl Estimat Average Glucose mg/dl Hemoglobin A1c (4.5-5.6) % Calcium 8.9 (8.5-10.1) mg/dl Magnesium (1.8-2.4) mg/dl Total Bilirubin 1.0 (0.2-1) mg/dl AST 15 (15-37) U/L ALT 19 (12-78) U/L Alkaline Phosphatase 70 (45-117) U/L Total Creatine Kinase 44 (39-308) U/L CK-MB (CK-2) 1.9 (0.5-3.6) ng/ml CK/CKMB % Calc 4.3 H (0-3.0) Troponin I 0.034 (0-0.045) ng/ml Total Protein 6.1 L (6.4-8.2) gm/dl Albumin 3.4 (3.4-5.0) gm/dl Globulin 2.7 (2.5-4.0) gm/dl Albumin/Globulin Ratio 1.3 (0.9-2) Triglycerides (0-150) mg/dl Cholesterol (0-200) mg/dl LDL Cholesterol, Calc mg/dl VLDL Cholesterol, Calc mg/dl HDL Cholesterol mg/dl Cholesterol/HDL Ratio TSH 0.810 (0.300-4.500) uIu/ml COVID-19 Eval Order [facility]FluRsv at [facility] SARS-CoV-2 (PCR) (Negative) Influenza Type A (PCR) (Neg) Influenza Type B (PCR) (Neg) RSV (RT-PCR) (Neg) Medications Administered Current Inpatient Medications Acetaminophen (Acetaminophen 325 Mg Tab) 650 mg PO Q4H PRN PRN Reason: Pain or Fever Stop: 03/17/21 14:37 Al Hydrox/Mg Hydrox/Simethicone (Aluminum/Magnesium Susp 30 Ml Udc) 15 ml PO Q4H PRN PRN Reason: Dyspepsia Stop: 03/17/21 14:37 Aspirin (Aspirin 81 Mg Ectab) 81 mg PO DAILY [facility] Stop: 03/18/21 08:59 Last Admin: 02/16/21 09:45 Dose: Not Given Documented by: Magnesium Hydroxide (Magnesium Hydroxide Susp 30 Ml Udc) 30 ml PO Q12H PRN PRN Reason: Constipation Stop: 03/17/21 14:37 Ondansetron HCl (Ondansetron Inj 2 Mg/Ml 2 Ml Vial) 4 mg IV Q6H PRN PRN Reason: Nausea Stop: 03/17/21 14:37 Oxybutynin Chloride (Oxybutynin Chloride 5 Mg Tab) 5 mg PO BID [facility] Stop: 03/17/21 20:59 Last Admin: 02/16/21 09:43 Dose: 5 mg Documented by: Polyethylene Glycol (Polyethylene (Miralax) 17 Gm Pack) 17 gm PO DAILY PRN PRN Reason: Constipation Stop: 03/17/21 14:37 (1) Fall Encounter type: initial encounter Qualified Code(s): W19.XXXA - Unspecified fall, initial encounter (2) Laceration of scalp Encounter type: initial encounter Qualified Code(s): S01.01XA - Laceration without foreign body of scalp, initial encounter
[2021-02-16 12:27] LABS: Hematocrit (blood only) 35.6 % (42-52); Hemoglobin 12.4 g/dL (14.0-18.0)
[2021-02-16 14:00] LABS: Appearance Urine Clear (Clear); Bilirubin Urine Negative (Negative); Blood Urine Negative (Negative); Color Urine Yellow; Glucose Urine UA Negative (Negative); Ketones Urine Trace (Negative); Leukocyte Esterase Urine Negative (Negative); Nitrite Urine Negative (Negative); Protein Urine Negative (Negative); Specific Gravity Urine 1.022 (1.000-1.030); Urobilinogen Urine Negative (Negative)
--- NOTE | 2021-02-16 14:34 | Discharge Summary ---
Date of Service February 16, 2021 Admission HPI Per Admitting Provider This is a 85 year old male who has PMH as listed below who presents to ED after sustaining fall in bathroom prior to arrival hitting his head. He woke up to go to the bathroom and he decided to wash his face and brush his teeth, but he fell and hit his head on the left side. He had a lot of bleeding and was unable to get it to stop. Prior to falling he denies any pre syncopal symptoms like lightheaded, dizziness, diaphoresis, chest pain or SOB. He has never experienced syncopal episode in past. He hit his head and sustained a significant forehead laceration. He does have slight headache along the area of laceration but denies any visual changes. Prior to today episode he denies any f/c/s, dizziness, lightheaded, chest pain, sob, cough, uri sx, n/v/d, abdominal pain, change in bowel or urinary habits. He does have hx of prostate surgery for which he takes oxybutnin for incontinence. He also takes aspirin for prophylaxis of blood clot. He states he eats a low-fat and healthy diet which he attributes to good health. In ED patient remained hemodynamically stable. Lab work significant for mild leukocytosis, glucose 139, CK-MB 4.3, troponin detectable at 0.034. Head CT revealed left frontal scalp laceration and microvascular ischemic change but otherwise no acute abnormality. Chest x-ray and cervical spine CT without acute abnormality. He received 1 L of IV fluid as well as Tdap vaccination. History obtained with family member at bedside and assistance of inside sales consultant. Admission Exam Per Admitting Provider Constitutional: Elderly, Erit[place]an, male, WD/WN, vitals as above, NAD, sitting up in bed, pleasant, conversing easily Head: Normocephalic, laceration to left temporal scalp region, wound sutured and closed with good approximation of edges Eyes: PERRL, conjunctivae normal, anicteric sclerae ENMT: external ear and nose normal, oropharynx normal Neck: trachea midline, no thyromegaly normal visual inspection Respiratory: normal respiratory effort, lungs clear to auscultation, no wheeze, rales, rhonchi. Normal insp/exp effort, no accessory muscle use Cardiovascular: RRR, no murmur, no edema Vessels: no JVD or carotid bruit Chest: normal inspection of chest Abdomen: normal bowel sounds, soft, nontender, no hepatosplenomegaly Musculoskeletal: no cyanosis or clubbing, extremities motor strength 5/5 Skin: no rashes, warm and dry normal turgor Neurologic: PERRL, EOMI, accommodation nl, no face palsy, no dysarthria CN's II-XI intact bilaterally and moves all extremities Psychiatric: A+Ox3, euthymic affect Lymphatic: no cervical or axillary lymphadenopathy Principal Diagnosis Fall, presyncope, scalp laceration Discharge Exam Constitutional: Elderly, Eritrean, male, WD/WN, vitals as above, NAD, sitting up in bed, pleasant, conversing easily Head: Normocephalic, laceration to left temporal scalp region, wound sutured and closed with good approximation of edges Eyes: PERRL, EOMI, conjunctivae normal, anicteric sclerae ENMT: external ear and nose normal, oropharynx normal Neck: trachea midline, no thyromegaly normal visual inspection Respiratory: normal respiratory effort, lungs clear to auscultation, no wheeze, rales, rhonchi. Normal insp/exp effort, no accessory muscle use Cardiovascular: RRR, no murmur, no edema Vessels: no JVD or carotid bruit Chest: normal inspection of chest Abdomen: normal bowel sounds, soft, nontender Musculoskeletal: no cyanosis or clubbing, extremities motor strength 5/5 Skin: no rashes, warm and dry normal turgor Neurologic: PERRL, EOMI, no face palsy, no dysarthria CN's II-XI intact bilaterally and moves all extremities Psychiatric: A+Ox3, euthymic affect Lymphatic: no cervical or axillary lymphadenopathy Discharge Data Allergies Allergy/AdvReac Type Severity Reaction Status Date / Time No Known Allergies Allergy Unverified 02/15/21 10:08 Consultations 02/15/21 12:31 ED Decision to Admit Stat Ordered Studies 02/15/21 10:29 CT cervical spine wo con Stat No fractures within the cervical spine. CT head/brain wo con Stat No acute intracranial abnormality. Left frontal scalp laceration. 02/15/21 13:02 US carotid doppler BI Routine No hemodynamically significant stenosis seen within the carotid arteries. Hospital Course (1) Fall: (2) Pre-syncope: 85 yr old M w/ hx of prostate ca s/p surgery with residual incontinence who presents to ED after sustaining a fall and possible pre syncope with significant L scalp laceration. Pt never experienced similar sx in past. Pt was going to bathroom, stood up to wash face/brush teeth and fell to L side, concern for pre syncope. Denies maria dolores loss of consciousness. In ED EKG with PAC but otherwise unremarkable. Trop detectable at 0.034, CKMB elevated 4.3. No other acute abnormality - admitted for further observation. med tele under observation - sinus w/ PACs overnight Echocardiogram -left ventricle is normal in size. LV systolic function is normal. EF 65 to 70%. LV wall motion is normal. The right ventricular systolic function is normal. LA size is normal. RA size is normal. Mild to moderate aortic regurg. There is mild tricuspid regurg. Carotid duplex - No hemodynamically significant stenosis seen within the carotid arteries. Orthostatic VS obtained after 1L of IV fluids given, patient not orthostatic cycle trops- detectable but no sign. elevation, repeated ecg consult PT/OT - home PT cbc, bmp After further discussion today (02/16/2021), patient and family member translating report that patient stumbled as he was putting on clothing, and deny any dizziness or loss of consciousness. Patient will be discharged home, with family, and home health. He will follow up with primary care doctor. Leukocytosis no s/sx of infection may be reactive Now resolved UA - negative Hyperglycemia bsg 139 in ED Current A1C 5.7% LDL 67 (3) Laceration of scalp: wound closed consult wound care for daily management - recommend to keep the area clean can was w/ soap and water 24-48 hrs after, poss. abx ointment as needed tdap received in ED (4) Incontinence of urine: continue oxybutnin (5) DVT prophylaxis: SCD/TEDS no chemical prophylaxis for now 2/2 to fall/scalp laceration reassess need daily Total Time Total Time Spent Total Time Spent (In Minutes): 35 Total Time Includes: Examination of the Patient, Discharge Planning and Medication Reconciliation Discharge Plan Discharge Items Patient Disposition: Home - Home Health Services Reason For Visit: SYNCOPE Discharge Diagnosis: Fall, presyncope, scalp laceration Activity: Per Instructions section Non-emergency contact: Primary Care Provider Call non-emergency contact if: you have any medication questions and your symptoms worsen Follow-up/Referrals: Phil Fenton MD [Primary Care Provider] - (Date & Time 02/21/2021 11:00 AM Provider Phil Fenton III, MD Department [facility] ) Diet: Regular Addtl Attending Provider Instructions: Follow-up with your primary care doctor, the appointment was scheduled for you for February 21. Home health services were arranged for you by our case management. Make sure to keep your scalp laceration clean and dry. For pain you can take Tylenol 1000 mg 3 times a day. Pending Studies at Discharge: No Stand-Alone Forms: [facility] [employer], Smoking Cessation Medications and DC Order Prescriptions: Continued oxybutynin chloride 5 mg tablet 5 mg PO BID RF: 0 aspirin [Aspir-81] 81 mg Tablet,Delayed Release (Dr/Ec) 81 mg PO DAILY RF: 0 Discharge Orders: Discharge Order (Routine); Ordered 02/16/21 Ordered By: Yash Le Admission Data Admit Date/Time: 02/15/21 12:39 Attending Provider: Yash Le Admit Provider: Tavo Mack Primary Care Provider: Phil Fenton Other Providers: Tavo Mack ; [place]
--- NOTE | 2021-02-16 16:10 | Electrocardiogram Report ---
Test Reason : Blood Pressure : / mmHG Vent. Rate : 063 BPM Atrial Rate : 063 BPM P-R Int : 148 ms QRS Dur : 084 ms QT Int : 406 ms P-R-T Axes : 052 052 050 degrees QTc Int : 415 ms Sinus rhythm with Premature supraventricular complexes Otherwise normal ECG When compared with ECG of 15-FEB-2021 11:06, No significant change was found Confirmed by Dexter Hedrick ([id number]) on 02/16/2021 4:10:17 PM Referred By: REFERRED SELF Confirmed By:Dexter Hedrick
== END 2021-02-16 14:57 | disposition home health service (06) ==
LOC: ED 09:03 → 2N 09:03 → SUATTDRO 12:39 → 2N 14:10